=== PATIENT | female | born 1990 | race Caucasian/White ===

== ENCOUNTER 2020-06-22 08:37 | Day surgery (SDC) | payer OTHER ==
[2020-06-17 12:35] LABS: APPEARANCE,URINE SLIGHTLY-CLOUDY; BILIRUBIN,URINE NEGATIVE (NEGATIVE); COLOR,URINE YELLOW; GLUCOSE, URINE NEGATIVE (NEGATIVE); HEMATOCRIT 39.6 % (36.0-47.0); KETONES,URINE NEGATIVE (NEGATIVE); LEUKOCYTE ESTERASE,URINE NEGATIVE (NEGATIVE); MEAN CORPUSCULAR HEMOGLOBIN 29.9 pg (27.0-33.4); MEAN CORPUSCULAR HGB CONC 35.3 g/dL (32.0-36.0); MEAN CORPUSCULAR VOLUME 85 fl (80-97); NITRITE,URINE NEGATIVE (NEGATIVE); PLATELET COUNT 307 10^3/uL (150-450); PROTEIN,URINE NEGATIVE (NEGATIVE); RED BLOOD COUNT 4.68 10^6/uL (3.72-5.28); UROBILINOGEN,URINE NEGATIVE mg/dL (<2.0); WHITE BLOOD COUNT 7.8 10^3/uL (4.0-10.5)
[~2020-06-22 08:37] MED LIST: CEFAZOLIN 2 GM/D5W RTU 2 GM/50 ML RTUPB IV ONE; CEFAZOLIN 2 GM/D5W RTU 2 GM/50 ML RTUPB IV PRN; LACTATED RINGERS 1000 ML IV PRN; LIDOCAINE 0.5% INJ-PF (5 MG/ML) 50 ML SDV SUBCUT PRN
[2020-06-22] MEDS ORDERED: BUPIVACAINE HCL 0.25 % INJ/PF (2.5 MG/1 ML) 30 ML VIAL ONE (09:44)
[2020-06-22] MEDS ORDERED: FENTANYL CITRATE INJ/PF 100 MCG/2 ML AMPUL ONE (09:56)
[2020-06-22] MEDS ORDERED: PROPOFOL INJ 200 MG/20 ML VIAL IV ONE (09:56)
[2020-06-22] MEDS ORDERED: MIDAZOLAM 2 MG/2 ML INJ ONE (09:56)
[2020-06-22] MEDS ORDERED: MORPHINE SULFATE 10 MG/ML INJ IV PRN (10:31)
[2020-06-22] MEDS ORDERED: DIPHENHYDRAMINE HCL 50 MG/ML VIAL IV PRN (10:31)
[2020-06-22] MEDS ORDERED: MEPERIDINE HCL/PF INJ 25 MG/1 ML DISP.SYRIN IV PRN (10:31)
[2020-06-22] MEDS ORDERED: FENTANYL CITRATE INJ/PF 100 MCG/2 ML AMPUL IV PRN (10:31)
[2020-06-22] MEDS ORDERED: PROMETHAZINE HCL INJ 25 MG/1 ML VIAL IV PRN (10:31)
--- NOTE | 2020-06-22 11:00 | Operative Report ---
Operative Report DATE OF SURGERY: 06/22/20 PREOPERATIVE DIAGNOSIS: Deserve sterilization and menorrhagia POSTOPERATIVE DIAGNOSIS: Same OPERATION: Bilateral salpingectomy and D&C hysteroscopy SURGEON: STEFAN PATIÑO ANESTHESIA: GA TISSUE REMOVED OR ALTERED: Tubes and endometrium COMPLICATIONS: None ESTIMATED BLOOD LOSS: Less than 10 cc PROCEDURE: Patient placed in a dorsolithotomy vision prepped and draped in a sterile fashion. Complete cervix visualized and grasped with single-tooth tenaculum Hulka neck was placed single-tooth tenaculum was removed speculum was removed. Attention was turned to the abdomen where a subumbilical midline incision was made trocar was introduced with insufflation the abdomen. Scope was placed with visualization of tubes uterus and ovaries and pelvis no overt abnormalities were noted. Second puncture was made lateral to the first on the left and a 5 was introduced and a suprapubic 10 trocar was then placed. Using a harmonic scalpel the left tube was elevated and divided along the mesosalpinx to the isthmus of the uterus and tube was removed. The uterus appears on the right. Stasis was noted along the incision line. Laparoscope was removed trochars were removed after deflating the abdomen. Lesions were closed with subcu 4-0 Vicryl. She was turned to the pelvis once again where the speculum was placed the cervix visualized and grasped with single-tooth tenaculum. Topical neck was removed. Cervix was dilated to 8 mm. Transferred and performed with no overt ab normalities noted no polyps or submucous fibroids being noted. Curettage was then performed with a minimal amount of tissue being recovered. To tenaculum was removed and hemostasis was noted speculums removed and the procedure terminated. She was taken recovery room good condition.
[2020-06-22] MEDS ORDERED: OXYCODONE-ACETAMINOPHEN 5-325 MG TABLET ONE (11:48)
[2020-06-22 13:53] VITALS: BP 113/80
[2020-06-22] MEDS ORDERED: LIDOCAINE 2% INJ-PF (20 MG/ML) 2 ML AMPUL ONE (14:11)
[2020-06-22] MEDS ORDERED: DEXAMETHASONE SOD PHOSPHATE INJ 4 MG/1 ML VIAL ONE (14:11)
[2020-06-22] MEDS ORDERED: KETOROLAC TROMETHAMINE 60 MG/2 ML SDV ONE (14:11)
[2020-06-22] MEDS ORDERED: SUCCINYLCHOLINE CHLORIDE INJ 200 MG/10 ML VIAL ONE (14:11)
[2020-06-22] MEDS ORDERED: ROCURONIUM BROMIDE INJ 50 MG/5 ML VIAL IV ONE (14:11)
[2020-06-22] MEDS ORDERED: ONDANSETRON HCL INJ/PF 4 MG/2 ML SDV ONE (14:11)
[2020-06-22] MEDS ORDERED: GLYCOPYRROLATE 1 MG/5 ML VIAL ONE (14:11)
[2020-06-22] MEDS ORDERED: NEOSTIGMINE METHYLSULFATE 10 MG/10 ML VIAL ONE (14:11)
== END 2020-06-22 13:00 | disposition home or self-care (01) ==
LOC: OROUT 08:37
PROVIDERS: ATTEND Obstetrics & Gynecology Gynecology
DX: Z30.2 Encounter for sterilization (principal); N83.8 Other noninflammatory disorders of ovary, fallopian tube and broad ligament; N92.6 Irregular menstruation, unspecified; Z03.818 Encounter for observation for suspected exposure to other biological agents ruled out
CPT/HCPCS: 36415; 85027; 87635; 81025; 81001; 88302 ×2; 88305 ×2; 00840; 58558; 58661; J2250; J3490 ×3; J1100; J1885; J3010; J2710; J0330; J2405; J2704; J0690; C9803; 840